=== PATIENT | female | born 1965 | race Caucasian/White ===

== ENCOUNTER 2025-06-30 20:55 | Inpatient (IN) | payer OTHER, SELFPAY ==
[2025-06-30 20:56] VITALS: BP 175/69; PULSE 108; RESP 16; TEMP 39.4; O2SAT 96; BMI 37.5
[2025-06-30 21:00] VITALS: BP 175/69; PULSE 102; RESP 16; TEMP 39.4; O2SAT 95
--- NOTE | 2025-06-30 21:06 | CT_ITS ---
PROCEDURE: ABDOMEN/PELVIS W IV CONT ONLY 06/30/2025 REASON FOR EXAM: FEVER, ABDOMINAL PAIN, NAUSEA AND VOMITING TECHNIQUE: ABDOMEN/PELVIS W IV CONT ONLY. Coronal and Sagittal reconstruction series were provided. CONTRAST: Isovue 370 VOLUME: 97 mL One or more dose reduction techniques were used (e.g., Automated exposure control, adjustment of the mA and/or kV according to patient size, use of iterative reconstruction technique. RADIATION DOSE SUMMARY: CTDlvol: 20.63 mGy DLP: 1036.05 mGycm COMPARISON: None. FINDINGS: Lung bases: Clear. Liver: Mild diffuse hepatic steatosis. No focal lesion. Gallbladder: Distended gallbladder with small gallstones at the gallbladder neck. No substantial pericholecystic inflammatory changes appreciated. No biliary ductal dilatation. Spleen: Normal size and morphology. Pancreas: Unremarkable. No ductal dilatation or focal lesion. Adrenals: Unremarkable. Kidneys: Normal, symmetric enhancement. No urolithiasis or hydroureteronephrosis. Subcentimeter simple benign cyst in the upper pole of the right kidney. Bladder: Unremarkable. No wall thickening or inflammatory changes. Reproductive Organs: Prior hysterectomy. Unremarkable adnexal regions. Bowel: Unremarkable. No evidence of obstruction or active inflammatory process. Normal appendix identified in the right lower quadrant. Lymph nodes: No enlarged abdominopelvic lymph nodes. Vasculature: Normal course and caliber of the abdominal aorta and IVC. Mild atherosclerotic calcifications. Peritoneum / Retroperitoneum: No ascites or free air. Musculoskeletal: Mild degenerative changes of the spine. Prior umbilical hernia repair. CT/Abdomen/Pelvis W IV Cont ONLY IMPRESSION: Cholelithiasis with a distended gallbladder. No substantial pericholecystic in flammation/edema, and no biliary ductal dilatation. Suggest further evaluation with ultrasound or nuclear HIDA scan. Reading Location: [id number]
--- NOTE | 2025-06-30 21:08 | ED.VIS.GI ---
HPI HPI - GI History of Present Illness Chief Complaint: Abd Pain Narrative Narrative: 60-year-old female presents via EMS with abdominal pain, nausea and vomiting that she had start earlier this evening. She has past abdominal surgical history of hysterectomy, and stated to triage that this felt like a gallbladder attack which she has had in the past but states that she has not had a cholecystectomy. She vomited twice today and felt better afterwards. She described more epigastric pain to right upper quadrant pain. She denies any lower abdominal pain. No dysuria or hematuria, no diarrhea. EMS administered ondansetron and Toradol. Patient feels improved. PFSH PFSH Allergy/AdvReac Type Severity Reaction Status Date / Time acetaminophen (From Tylenol) Allergy Shortness Verified 06/30/25 21:01 of breath Surgical History H/O umbilical hernia repair H/O: hysterectomy Social History Smoking Status: Never smoker ROS ROS ED ROS Narrative Review of systems positive for abdominal pain, epigastric to right upper quadrant, nausea and vomiting, no diarrhea, no dysuria or hematuria. Denies subjective fever or chills. Improved after vomiting. EXAM Physical Exam Narrative Exam Narrative: Positive fever of 103 ?F. Nontoxic-appearing. Cardiovascular examination reveals mild tachycardia. Lungs are clear to auscultation bilaterally. The abdomen is soft with minimal tenderness in the epigastrium and right upper quadrant but negative Rodriguez sign. No guarding or rebound. Positive bowel sounds. Neurological examination nonfocal, nonlateralizing. Const Vital Signs: 06/30/25 20:56 06/30/25 21:00 06/30/25 21:55 Temperature 103.0 F H 103 F H 99.2 F H Temperature Source Oral Oral Oral Pulse Rate 108 H 102 H 100 Respiratory Rate 16 16 18 Blood Pressure 175/69 H 175/69 H 163/66 H Blood Pressure Mean 104 104 98 Pulse Ox 96 95 97 Oxygen Delivery Method Room Air Room Air Room Air 06/30/25 22:56 06/30/25 23:00 Temperature 98.8 F Temperature Source Oral Pulse Rate 102 H 88 Respiratory Rate 14 16 Blood Pressure 158/85 H 160/75 H Blood Pressure Mean 109 103 Pulse Ox 99 99 Oxygen Delivery Method Room Air Room Air MDM MDM MDM Narrative Medical decision making narrative: Differential diagnosis includes but not limited to pancreatitis versus acute cholecystitis versus colitis/diverticulitis. Patient had already received Toradol for analgesia but this could be used as an antipyretic. I will obtain blood cultures, CT imaging, CBC, CMP, and lipase. I reviewed her laboratory work and she does have slightly elevated white count of 11.1, hemoglobin 14.2, hematocrit 41.3, platelet count normal at 245. CMP is grossly unremarkable with normal AST and normal ALT and normal alk phos. Lactic acid is 1.1 so I doubt sepsis. She is not really meeting SIRS criteria any longer as she is not tachycardic and her heart rate is 88. Temperature has come down after Toradol to 98.8. Urinalysis negative for infection with 0-5 white cells. I do not feel she requires antibiotics. I reviewed the radiology report of the CT of the abdomen and pelvis after significant delay in reading it by radiology. There is evidence of cholelithiasis and distended gallbladder. While there is no perinephric stranding and the patient feels improved, my concern is for acute cholecystitis. I feel that she may need a cholecystectomy versus ERCP. Repeat examination shows mild tenderness in the right upper quadrant epigastrium, but no rebound or guarding. She will be started on Zosyn and ultrasound ordered. I discussed patient with Dr. Ace with general surgery who will admit the patient to the medical surgical floor. Ultrasound is present although it is a weekend and will perform the ultrasound prior to her admission. Patient is in stable condition. History & Record Review Discussion w/independent historian: Patient and Family Lab Data Attestation: I reviewed the patient's lab results. Labs: Laboratory Results - last 24 hr 06/30/25 06/30/25 06/30/25 20:25 21:16 21:51 WBC 11.1 H RBC 5.09 Hgb 14.2 Hct 41.3 MCV 81.1 MCH 27.9 MCHC 34.4 RDW Std Deviation 39.3 RDW Coeff of Brittanie 13.2 Plt Count 245 MPV 9.6 Immature Gran % (Auto) 0.400 Neut % (Auto) 88.6 H Lymph % (Auto) 6.7 L [place] % (Auto) 3.8 Eos % (Auto) 0.2 Baso % (Auto) 0.3 Absolute Neuts (auto) 9.9 H Absolute Lymphs (auto) 0.74 L Nucleated RBC % 0 Sodium 138 Potassium 3.6 Chloride 101 Carbon Dioxide 22.9 Anion Gap 14 BUN 15 Creatinine 1.00 Estim Creat Clear Calc 68.51 Est GFR (MDRD) Non-Af 65 BUN/Creatinine Ratio 15.0 Glucose 122 H Lactic Acid 1.1 Calcium 9.9 Total Bilirubin 0.61 AST 30 ALT 34 Alkaline Phosphatase 84 Total Protein 7.1 Albumin 4.5 Globulin 2.6 Albumin/Globulin Ratio 1.7 Lipase 36 Urine Color Yellow Urine Clarity Sl. Cloudy Urine pH 8.0 Ur Specific [place] 1.015 Urine Protein 15 H Urine Glucose (UA) Normal Urine Ketones 15 H Urine Occult Blood Negative Urine Nitrite Negative Urine Bilirubin Negative Urine Urobilinogen Normal Ur Leukocyte Esterase Negative Urine RBC 0-5 SEEN Urine WBC 0-5 SEEN Ur Squamous Epith Cells 5-10 SEEN Urine Bacteria 0 SEEN Urine Mucus 0 SEEN Radiography Diagnostic Testing: Clinical Impression(s) from Imaging Studies Abdomen/Pelvis CT 06/30/25 21:06 IMPRESSION: Cholelithiasis with a distended gallbladder. No substantial pericholecystic inflammation/edema, and no biliary ductal dilatation. Suggest further evaluation with ultrasound or nuclear HIDA scan. Reading Location: [id number] Management Discussion w/another healthcare provider: [employer] (Dr. Jose Ace, general surgery) Discharge Plan Dx/Rx/DC Orders Clinical Impression: Acute cholecystitis, Nausea and vomiting, Abdominal pain Disposition Disposition: Acute Care Hospital [facility]
[2025-06-30] MEDS: 0.9% Normal Saline (1000mL) 1,000 ML 999 ML IV (21:21)
[2025-06-30 21:31] LABS: Hematocrit 41.3 % (37-47); Hemoglobin 14.2 g/dL (12.0-15.0); Immature Granulocytes Count 0.050 X10^3/uL (0.0-0.0); Mean Corp Hgb Conc 34.4 g/dL (32-36); Mean Corpuscular Volume 81.1 fL (81-99); Mean Platelet Vol. 9.6 fl (6.2-12.0); NRBC Flagged by Analyzer 0 % (0-5); Platelet Count 245 K/mm3 (150-450); RBC Distribution Width CV 13.2 % (11.6-14.6); RBC Distribution Width SD 39.3 fl (35.1-43.9); Red Blood Count 5.09 M/mm3 (4.2-5.4); White Blood Count 11.1 K/mm3 (4.4-11.0)
[2025-06-30 21:40] LABS: AST(SGOT) 30 U/L (<=31); Alanine Aminotransfer ALT/SGPT 34 U/L (<=34); Albumin, Serum 4.5 g/dL (3.4-4.8); Alkaline Phosphatase 84 U/L (35-104); Anion Gap 14 (5-15); BUN 15 mg/dL (4-19); BUN/Creat Ratio 15.0 RATIO (10-20); Calcium,Total 9.9 mg/dL (7.6-11.0); Carbon Dioxide 22.9 mmol/L (21.0-32.0); Chloride 101 mmol/L (98-108); Estimated Creatinine Clearance 68.51 ml/min (50-250); Globulin 2.6 g/dL (2.2-4.2); Glucose 122 mg/dL (70-99); Lipase 36 U/L (13-75); Potassium 3.6 mmol/L (3.3-5.1)
[2025-06-30 21:55] VITALS: BP 163/66; PULSE 100; RESP 18; TEMP 37.3; O2SAT 97
[2025-06-30 21:58] LABS: Mucous, Urine 0 SEEN /hpf (<or=2+)
[2025-06-30 22:06] LABS: Color, Urine Yellow (Yellow); Glucose, Dipstick Normal (Normal); Ketone-Dipstick 15 mg/dl (Negative); Leukocyte Esterase-Dipstick Negative /ul (Negative); Nitrite-Dipstick Negative (Negative); Occult Blood-Urine Negative /ul (Negative); Protein-Dipstick 15 mg/dl (Negative); Specific Gravity, Urine 1.015 (1.002-1.030); Urine Bilirubin Dipstick Negative (Negative)
[2025-06-30 22:19] LABS: Red Blood Cells-Urine 0-5 SEEN /hpf (0-5); Squamous Epithelial Cells - UA 5-10 SEEN /hpf (5-10)
[2025-06-30 22:56] VITALS: BP 158/85; PULSE 102; RESP 14; O2SAT 99
[2025-06-30 23:00] VITALS: BP 160/75; PULSE 88; RESP 16; TEMP 37.1; O2SAT 99
--- NOTE | 2025-06-30 23:34 | US_ITS ---
PROCEDURE: ABDOMEN LIMITED 07/01/2025 REASON FOR EXAM: FEVER, PAIN TECHNIQUE: ABDOMEN LIMITED COMPARISON: CT 06/30/2025 FINDINGS: Fatty replaced liver. Distended gallbladder with multiple gallstones. No pericholecystic fluid, wall thickening, or localized pain. 5 mm CBD. Hepatopetal portal flow. Unremarkable visible pancreas. Right kidney measures 9 cm in length without hydronephrosis. Subcentimeter simple cyst. US/Abdomen Limited IMPRESSION: Distended gallbladder multiple gallstones, but no specific evidence of cholecys titis. If this remains a clinical concern, recommend HIDA scanning. Reading Location: [place] [id number]
[2025-07-01] VITALS: BP 145/73; PULSE 74; RESP 18; TEMP 37.4; O2SAT 99
[2025-07-01 00:11] VITALS: BP 145/73; PULSE 70; RESP 14; TEMP 37.4; O2SAT 100
[2025-07-01] MEDS: Piperacil/Tazobactam 3.375 GM in 0.9% Normal Saline (50mL MB+) 50 ML IV ×2 (00:35→05:00)
[2025-07-01 02:38] VITALS: BP 141/88; PULSE 91; RESP 16; TEMP 37.3; O2SAT 98
[2025-07-01 03:09] VITALS: BMI 34.6
[2025-07-01 03:13] VITALS: BP 131/50; PULSE 90; RESP 18; TEMP 37.2; O2SAT 96
[2025-07-01] MEDS: Dextrose 5%/0.9% NaCl 1,000 ML 100 ML IV (03:23)
[2025-07-01 09:15] VITALS: BP 121/70; PULSE 78; RESP 18; TEMP 37.2; O2SAT 97
--- NOTE | 2025-07-01 09:17 | PCM.HP.STD ---
HPI - General General Date of Admission: 06/30/25 Date of Service: 07/01/25 Chief Complaint: Abdominal pain HPI Narrative ELIZABETH SAN, is a 60 F who presented to the emergency department overnight with abdominal pain. Patient states that this pain started last night. When asked about the location of her pain, she pointed to the epigastric area. She states that it really did not radiate to the left or to the right but remained focused in the epigastric region. This pain was associated with some nausea and vomiting. In the emergency department she had a temperature of 103.0 which quickly improved with Toradol and fluids. When questioned about association with food, she stated that she had just a veggie pizza yesterday evening but this was not fatty or greasy in any way. This morning she denies any pain whatsoever. She denies fevers or chills. No nausea or vomiting today. When questioned about sick contacts, she states that she has had several family members and friends who have had flulike symptoms recently. [facility] Home Medications ?Medication ?Instructions ?Recorded ?Last Taken ?Type NK 07/01/25 Unknown History Allergy/AdvReac Type Severity Reaction Status Date / Time acetaminophen (From Tylenol) Allergy Shortness Verified 06/30/25 21:01 of breath Surgical History H/O umbilical hernia repair H/O: hysterectomy Social History Smoking Status: Never smoker Vital Signs Vital Signs Vital Signs: 06/30/25 20:56 06/30/25 21:00 06/30/25 21:55 Temperature 103.0 F H 103 F H 99.2 F H Temperature Source Oral Oral Oral Pulse Rate 108 H 102 H 100 Respiratory Rate 16 16 18 Blood Pressure 175/69 H 175/69 H 163/66 H Blood Pressure Mean 104 104 98 Blood Pressure Source Blood Pressure Position Blood Pressure Location Pulse Ox 96 95 97 Oxygen Delivery Method Room Air Room Air Room Air 06/30/25 22:56 06/30/25 23:00 07/01/25 00:00 Temperature 98.8 F 99.4 F H Temperature Source Oral Oral Pulse Rate 102 H 88 74 Respiratory Rate 14 16 18 Blood Pressure 158/85 H 160/75 H 145/73 H Blood Pressure Mean 109 103 97 Blood Pressure Source Blood Pressure Position Blood Pressure Location Pulse Ox 99 99 99 Oxygen Delivery Method Room Air Room Air Room Air 07/01/25 00:11 07/01/25 02:38 07/01/25 02:38 Temperature 99.4 F H 99.1 F Temperature Source Oral Pulse Rate 70 91 Respiratory Rate 14 16 Blood Pressure 145/73 H 141/88 H Blood Pressure Mean 97 105 Blood Pressure Source Blood Pressure Position Blood Pressure Location Pulse Ox 100 98 Oxygen Delivery Method Room Air Room Air 07/01/25 03:13 Temperature 99 F Temperature Source Oral Pulse Rate 90 Respiratory Rate 18 Blood Pressure 131/50 H Blood Pressure Mean 77 Blood Pressure Source Monitor Blood Pressure Position Semi-Fowlers Blood Pressure Location Right Arm Pulse Ox 96 Oxygen Delivery Method Room Air Weight Weight: 201 lb 11.567 oz Body Mass Index (BMI) 34.6 Results Medical Records Data Attestation: I reviewed the patient's medical records Lab / Micro Data Attestation: I reviewed the patient's lab results. 06/30/25 20:25 06/30/25 20:25 Labs: Laboratory Results - last 24 hr 06/30/25 20:25: WBC 11.1 H, RBC 5.09, Hgb 14.2, Hct 41.3, MCV 81.1, MCH 27.9, MCHC 34.4, RDW Std Deviation 39.3, RDW Coeff of Brittanie 13.2, Plt Count 245, MPV 9.6, Immature Gran % (Auto) 0.400, Neut % (Auto) 88.6 H, Lymph % (Auto) 6.7 L, [place] % (Auto) 3.8, Eos % (Auto) 0.2, Baso % (Auto) 0.3, Absolute Neuts (auto) 9.9 H, Absolute Lymphs (auto) 0.74 L, Nucleated RBC % 0, Sodium 138, Potassium 3.6, Chloride 101, Carbon Dioxide 22.9, Anion Gap 14, BUN 15, Creatinine 1.00, Estim Creat Clear Calc 68.51, Est GFR (MDRD) Non-Af 65, BUN/Creatinine Ratio 15.0, Glucose 122 H, Calcium 9.9, Total Bilirubin 0.61, AST 30, ALT 34, Alkaline Phosphatase 84, Total Protein 7.1, Albumin 4.5, Globulin 2.6, Albumin/Globulin Ratio 1.7, Lipase 36 06/30/25 21:16: Lactic Acid 1.1 06/30/25 21:51: Urine Color Yellow, Urine Clarity Sl. Cloudy, Urine pH 8.0, Ur Specific [place] 1.015, Urine Protein 15 H, Urine Glucose (UA) Normal, Urine Ketones 15 H, Urine Occult Blood Negative, Urine Nitrite Negative, Urine Bilirubin Negative, Urine Urobilinogen Normal, Ur Leukocyte Esterase Negative, Urine RBC 0-5 SEEN, Urine WBC 0-5 SEEN, Ur Squamous Epith Cells 5-10 SEEN, Urine Bacteria 0 SEEN, Urine Mucus 0 SEEN Imaging Radiology Impression Abdomen/Pelvis CT 06/30/25 21:06 IMPRESSION: Cholelithiasis with a distended gallbladder. No substantial pericholecystic inflammation/edema, and no biliary ductal dilatation. Suggest further evaluation with ultrasound or nuclear HIDA scan. Reading Location: [id number] Abdomen Ultrasound 06/30/25 23:34 IMPRESSION: Distended gallbladder multiple gallstones, but no specific evidence of cholecystitis. If this remains a clinical concern, recommend HIDA scanning. Reading [facility] Assessment & Plan Assessment/Plan (1) Abdominal pain: (2) Nausea and vomiting: PLAN: Plan The patient is a 60-year-old female who presented with epigastric abdominal pain to the emergency department last evening. This was associated with nausea and vomiting. She had temperature of 103 in the emergency department. All of her symptoms as well as her fever have resolved this morning. She has no pain whatsoever. She states she is hungry. While certainly her ultrasound did show a distended gallbladder with stones, the distention could be related to fasting state. The 103 temperature seems quite high for acute cholecystitis and I suspect this may have been something viral/flu/food poisoning. The fact that she is feeling much better today seems to follow more with a flulike illness. I am recommending a trial of diet. Ideally she states that she would like to go home if she tolerates diet, otherwise I would probably order a HIDA scan for tomorrow. We will see how she tolerates a couple meals today and decide later today whether she can go home or needs to stay for HIDA scan. The patient and her are agreeable to this plan Charges/Coding Visit Charges Inpatient E&M: 79945 Init Hosp L3
--- NOTE | 2025-07-01 12:18 | DS.PCM_ITS ---
Providers Date of Admission: 06/30/25 Date of Discharge: 07/01/25 Primary Care Physician: Dr. Chas Santos, Reason For Visit: ABDOMINAL PAIN Diagnosis Discharge Diagnosis (1) Abdominal pain: Status: Acute Code(s): R10.9 - Unspecified abdominal pain (2) Nausea and vomiting: Status: Acute Code(s): R11.2 - Nausea with vomiting, unspecified Plan The patient is a 60-year-old female who presented with epigastric abdominal pain to the emergency department last evening. This was associated with nausea and vomiting. She had temperature of 103 in the emergency department. All of her symptoms as well as her fever have resolved this morning. She has no pain whatsoever. She states she is hungry. While certainly her ultrasound did show a distended gallbladder with stones, the distention could be related to fasting state. The 103 temperature seems quite high for acute cholecystitis and I suspect this may have been something viral/flu/food poisoning. The fact that she is feeling much better today seems to follow more with a flulike illness. I am recommending a trial of diet. Ideally she states that she would like to go home if she tolerates diet, otherwise I would probably order a HIDA scan for tomorrow. We will see how she tolerates a couple meals today and decide later today whether she can go home or needs to stay for HIDA scan. The patient and her are agreeable to this plan Medications at Discharge Home Medications NK 07/01/25 Hospital Course Operations None Procedures None Summary of Care Provided Minutes Spent on Discharge: 15 Hospital Course: The patient is a 60-year-old female who presented with epigastric abdominal pain last night with a temperature of 103. White count was slightly elevated patient also had nausea and vomiting. CT scan was performed and showed a distended gallbladder with stones but no other findings. Ultrasound showed gallbladder to have stones but otherwise appeared normal without signs of obvious acute cholecystitis. This morning her symptoms were completely resolved. She did state that she has been around some other individuals with similar symptoms attributed to the flu. Physical Exam Narrative Abdomen soft nontender nondistended this afternoon Const alert, oriented x3 and no apparent distress Weight / BMI Weight Weight: 201 lb 11.567 oz Body Mass Index (BMI) 34.6 ABG / Lab / Microbiology Data 06/30/25 20:25 06/30/25 20:25 Laboratory: Laboratory Results - last 24 hr 06/30/25 20:25: WBC 11.1 H, RBC 5.09, Hgb 14.2, Hct 41.3, MCV 81.1, MCH 27.9, MCHC 34.4, RDW Std Deviation 39.3, RDW Coeff of Brittanie 13.2, Plt Count 245, MPV 9.6, Immature Gran % (Auto) 0.400, Neut % (Auto) 88.6 H, Lymph % (Auto) 6.7 L, [place] % (Auto) 3.8, Eos % (Auto) 0.2, Baso % (Auto) 0.3, Absolute Neuts (auto) 9.9 H, Absolute Lymphs (auto) 0.74 L, Nucleated RBC % 0, Sodium 138, Potassium 3.6, Chloride 101, Carbon Dioxide 22.9, Anion Gap 14, BUN 15, Creatinine 1.00, Estim Creat Clear Calc 68.51, Est GFR (MDRD) Non-Af 65, BUN/Creatinine Ratio 15.0, Glucose 122 H, Calcium 9.9, Total Bilirubin 0.61, AST 30, ALT 34, Alkaline Phosphatase 84, Total Protein 7.1, Albumin 4.5, Globulin 2.6, Albumin/Globulin Ratio 1.7, Lipase 36 06/30/25 21:16: Lactic Acid 1.1 06/30/25 21:51: Urine Color Yellow, Urine Clarity Sl. Cloudy, Urine pH 8.0, Ur Specific [place] 1.015, Urine Protein 15 H, Urine Glucose (UA) Normal, Urine Ketones 15 H, Urine Occult Blood Negative, Urine Nitrite Negative, Urine Bilirubin Negative, Urine Urobilinogen Normal, Ur Leukocyte Esterase Negative, Urine RBC 0-5 SEEN, Urine WBC 0-5 SEEN, Ur Squamous Epith Cells 5-10 SEEN, Urine Bacteria 0 SEEN, Urine Mucus 0 SEEN Radiography Diagnostic Testing: Radiology Impression Abdomen/Pelvis CT 06/30/25 21:06 IMPRESSION: Cholelithiasis with a distended gallbladder. No substantial pericholecystic inflammation/edema, and no biliary ductal dilatation. Suggest further evaluation with ultrasound or nuclear HIDA scan. Reading Location: [id number] Abdomen Ultrasound 06/30/25 23:34 IMPRESSION: Distended gallbladder multiple gallstones, but no specific evidence of cholecystitis. If this remains a clinical concern, recommend HIDA scanning. Reading Location: [facility] D/C Instructions Discharge Activity: Return to Normal Activity May shower in (days): 1 Call your doctor if you observe: Fever of 101 or Higher and - (Any return of previous abdominal pain) DC O2, CPAP, BIPAP Needs Home O2 Discharge instructions: No DC home with Oxygen: No Please Follow Up With: Jose Ace MD When: As needed Meaningful Use Info Meaningful Use Meaningful Use Diagnoses (Choose all that apply): None applicable Discharge Plan Admission Admit Date/Time: 06/30/25 23:48 Primary Reason for Your Visit: Abdominal pain Attending Provider: Jose Ace Primary Care Provider: Chas Santos Discharge Orders/Prescriptions Prescriptions: No Action NK Referrals / Follow Up: Chas Santos, [Primary Care Provider] - Disposition Disposition (needs filled in before D/C Order can be placed): Home, Self Care
[2025-07-01 12:22] VITALS: BP 120/74; PULSE 74; RESP 18; TEMP 36.7; O2SAT 97
== END 2025-07-01 14:01 | disposition home or self-care (01) | DRG 392 ==
LOC: ED 23:43 → MS3 07-01 00:01
PROVIDERS: Admitting Provider Surgery; Emergency Provider Emergency Medicine; PCP Family Medicine; Visit Provider Surgery
DX: R10.13 Epigastric pain (principal); K80.20 Calculus of gallbladder without cholecystitis without obstruction; R11.2 Nausea with vomiting, unspecified; Z90.710 Acquired absence of both cervix and uterus
CPT/HCPCS: 74177; 76705; 80053; 81001; 83605; 83690; 85025; 87040; 99285; Q9967; A4216